=== PATIENT | female | born 1965 | race Two or more races ===

== ENCOUNTER 2022-02-18 04:08 | Day surgery (SDC) | payer OTHER ==
[2022-02-14 16:44] VITALS: BMI 37.2
[2022-02-18] MEDS ORDERED: ONDANSETRON 4 MG/2 ML VIAL IVPUSH PRN (08:48)
[2022-02-18] MEDS ORDERED: IBUPROFEN 800 MG/8 ML IJ IVPB PRN (08:48)
[2022-02-18] MEDS ORDERED: oxyCODONE HCL 5 MG TABLET PO PRN (08:48)
[2022-02-18] MEDS ORDERED: IBUPROFEN 600 MG TABLET (FP) PO PRN (08:48)
[2022-02-18] MEDS ORDERED: DEXAMETHASONE SOD PHOSPHATE 4 MG/1 ML VIAL ONE (08:54)
[2022-02-18] MEDS ORDERED: LIDOCAINE HCL/PF 2% SDV 5ML VIAL ONE (08:54)
[2022-02-18] MEDS ORDERED: MIDAZOLAM HCL 2 MG/2 ML SINGLE DOSE VIAL ONE (08:54)
[2022-02-18] MEDS ORDERED: PROPOFOL 20 ML ONE (08:54)
[2022-02-18] MEDS ORDERED: ELECTROLYTE-148 SOLN 1,000 ML IV SCH (09:00)
[2022-02-18] MEDS ORDERED: KETOROLAC TROMETHAMINE 30 MG/1 ML VIAL ONE (10:00)
[2022-02-18] MEDS ORDERED: LACTATED RINGERS SOLUTION 1,000 ML IV SCH (11:15)
[2022-02-18 13:17] VITALS: BP 110/74; PULSE 60; TEMP 97
== END 2022-02-18 13:10 | disposition home or self-care (01) ==
LOC: JASU-SURG 04:08
PROVIDERS: ATTEND Obstetrics & Gynecology
PROC: 0UB98ZX Excision of Uterus, Via Natural or Artificial Opening Endoscopic, Diagnostic (ICD-10-PCS; 2022-02-18)
PROC: 0UDB8ZX Extraction of Endometrium, Via Natural or Artificial Opening Endoscopic, Diagnostic (ICD-10-PCS; 2022-02-18)
PROC: 0UB98ZZ Excision of Uterus, Via Natural or Artificial Opening Endoscopic (ICD-10-PCS; principal; 2022-02-18 09:00)
DX: N95.0 Postmenopausal bleeding (principal); N84.0 Polyp of corpus uteri; D25.9 Leiomyoma of uterus, unspecified
CPT/HCPCS: 82962; 88305-TC; 94760